=== PATIENT | female | born 1950 | race Caucasian/White ===

== ENCOUNTER 2019-04-14 22:05 | Emergency (ER) | payer MEDICARE ==
[~2019-04-14] VITALS: Ht 172.7 cm; Wt 90.7 kg
--- OUTSIDE RECORDS SUMMARY | 2019-04-14 22:08 | XMS REPORT | Clinical Summary ---
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 Active gabapentin (NEURONTIN) Take 300 mg 2 300 mg capsule by mouth 3 8 (three) times a day. Active aspirin 325 MG tablet Take 325 mg 0 by mouth daily. Active lidocaine-prilocaine APPLY ON 2 (EMLA) 2.5-2.5 % cream SURFACE OF 8 PORT 30-60 MINUTES PRIOR TO CHEMO Active calcium carbonate/vitamin Take by mouth 0 D3 (CALCIUM 600 + D,3, daily. ORAL) 04/19/2018 enoxaparin (LOVENOX) 40 Inject 0.4 mL 8.4 mL 0 mg/0.4 mL syringe (40 mg total) 8 under the skin daily for 21 days. 04/15/2018 sulfamethoxazole-trimetho Take 1 tablet 28 tablet 0 prim (BACTRIM DS) 800-160 by mouth 8 mg per tablet every 12 (twelve) hours for 14 days. 04/15/2018 metroNIDAZOLE (FLAGYL) Take 1 tablet 42 tablet 0 500 MG tablet (500 mg 8 total) by mouth 3 (three) times a day for 14 days. 04/28/2018 Discontinued (Reorder) furosemide (LASIX) 20 mg Take 1 tablet 20 tablet 0 tablet (20 mg total) 8 by mouth daily for 20 days. 07/09/2018 potassium chloride Take 1 tablet 90 tablet 0 (KLOR-CON) 10 MEQ CR (10 mEq 8 tablet total) by mouth daily for 90 days. 06/22/2018 Discontinued (Reorder) furosemide (LASIX) 20 mg Take 1 tablet 30 tablet 0 tablet (20 mg total) 8 by mouth daily for 30 days. 08/12/2018 Discontinued (Discontinued by another clinician) furosemide (LASIX) 20 mg TAKE 1 TABLET 30 tablet 0 tablet BY MOUTH 8 EVERY DAY 12/26/2018 sodium,potassium,mag Take 1 Bottle 354 mL 0 sulfates (SUPREP BOWEL (177 mL 9 PREP KIT) 17.5-3.13-1.6 total) by gram recon soln mouth once for 1 dose. 02/27/2019 Discontinued (Patient Discharge) gabapentin (NEURONTIN) 0 300 mg capsule 9 Active Problems Problem Noted Date Family history of hyperlipidemia 03/24/2019 History of colon cancer 12/26/2018 Overview: Added automatically from request for surgery [id number] Epigastric pain 12/26/2018 Overview: Added automatically from request for surgery [id number] Early satiety 11/14/2018 Overweight 09/18/2018 History of hysterectomy 09/18/2018 Ex-smoker 09/18/2018 Neoplasm of uncertain behavior of colon 09/18/2018 History of right breast cancer 04/10/2018 Overview: took PO med for 5 years and was cleared History of measles 04/10/2018 Family history of diabetes mellitus 04/10/2018 Family history of hypertension 04/10/2018 Family history of CVA 04/10/2018 BMI 27.0-27.9,adult 04/10/2018 Breast cancer screening 04/10/2018 Osteoporosis screening 04/10/2018 Edema 04/10/2018 Routine general medical examination at a health care facility 04/10/2018 Acute posthemorrhagic anemia 04/10/2018 Enlargement of thyroid 04/10/2018 Nonrheumatic aortic valve insufficiency 04/10/2018 Tricuspid valve insufficiency, non-rheumatic 04/10/2018 Immunization due 04/10/2018 Malignant neoplasm of ascending colon 04/08/2018 Cancer Staging: Clinical stage from 03/21/2018: Stage IVC (cT4b, cN0, pM1c) - Signed by Darcy Figueredo MD on 04/08/2018 Acute blood loss as cause of postoperative anemia 03/21/2018 Hypotension 03/21/2018 Thyroid goiter 03/10/2018 Hyperglycemia 03/10/2018 Preoperative clearance 03/10/2018 Other ascites 03/10/2018 Pelvic mass 03/08/2018 Resolved Problems Problem Noted Date Resolved Date Malignant neoplasm of ovary 09/18/2018 03/24/2019 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 BMI 29.0-29.9,adult 04/10/2018 08/12/2018 Acute respiratory failure with hypoxia 03/21/2018 08/12/2018 Encounters Care Team Description Date Type Specialty Jose Maria Deng MD History of colon cancer (Primary Dx); History of right breast cancer; Malignant neoplasm of ascending colon (HCC); Hyperglycemia; Family history of hyperlipidemia; Glaucoma screening 03/24/2019 Office Visit Family Medicine Ana Cristina Harmon MD Malignant neoplasm of ascending colon (HCC) (Primary Dx) 03/23/2019 Transcribe Access Orders Pankaj Weinberg MD History of colon cancer (Primary Dx); Diverticulosis of large intestine without hemorrhage; Internal hemorrhoid; Hiatal hernia 02/27/2019 Office Visit Gastroenterology Pankaj Weinberg MD COLONOSCOPY with biopsy 01/23/2019 Surgery Gastroenterology Toshia Garces MD 01/23/2019 Anesthesia Gastroenterology Event Pankaj Weinberg MD History of colon cancer; Epigastric pain 01/23/2019 Hospital Gastroenterology Encounter Ana Cristina Harmon MD Malignant neoplasm of ascending colon (HCC) 12/31/2018 Hospital Radiology Encounter Ana Cristina Harmon MD Malignant neoplasm of ascending colon (HCC) 12/31/2018 Hospital Radiology Encounter Aranza Ma NP Ashraf, Yassir Alam, MD Malignant neoplasm of ascending colon (HCC); Early satiety 12/26/2018 Office Visit Gastroenterology Shima Moise MA EGD/COLON INSTRUCTIONS 12/26/2018 Documentation Gastroenterology Shima Moise MA History of colon cancer (Primary Dx); Epigastric pain 12/26/2018 Prep for Gastroenterology Surgery Ana Cristina Harmon MD Malignant neoplasm of ascending colon (HCC) (Primary Dx) 12/18/2018 Transcribe Access Orders Aranza Ma NP Malignant neoplasm of ascending colon (HCC) (Primary Dx); Early satiety 11/14/2018 Office Visit Family Medicine Shima Ram 11/05/2018 Documentation Obstetrics and Gynecology IV infiltrate, initial encounter (Primary Dx); Swelling at injection site 10/09/2018 Office Visit Family Ana Cristina Marley MD Malignant neoplasm of ascending colon (HCC) 10/09/2018 Hospital Radiology Encounter Ana Cristina Harmon MD Malignant neoplasm of ascending colon (HCC) 10/09/2018 Hospital Radiology Encounter Ana Cristina Harmon MD Malignant neoplasm of ascending colon (HCC) (Primary Dx) 10/02/2018 Transcribe Access Orders Aranza Ma NP Malignant neoplasm of ascending colon (HCC) (Primary Dx); Nonrheumatic aortic valve insufficiency; Tricuspid valve insufficiency, non-rheumatic; Routine general medical examination at a health care facility; Hyperglycemia; History of right breast cancer; History of measles; Family history of hypertension; Family history of CVA; Family history of diabetes mellitus; BMI 27.0-27.9,adult; Overweight; History of hysterectomy; Malignant neoplasm of ovary, unspecified laterality (HCC); Secondary malignant neoplasm of right ovary (HCC); Neoplasm of uncertain behavior of colon 09/18/2018 Office Visit Family Jose Maria Ferreira MD Screening mammogram, encounter for 08/28/2018 Hospital Radiology Encounter Jose Maria Deng MD Metastatic colon cancer in female (HCC) (Primary Dx); Nonrheumatic aortic valve insufficiency; Malignant neoplasm of ascending colon (HCC); Hyperglycemia; BMI 27.0-27.9,adult; History of right breast cancer; Screening mammogram, encounter for 08/12/2018 Office Visit Family Medicine Ana Cristina Harmon MD Malignant neoplasm of ascending colon (HCC) 07/17/2018 Hospital Radiology Encounter Ana Cristina Harmon MD Malignant neoplasm of ascending colon (HCC) 07/17/2018 Hospital Radiology Encounter Ana Cristina Harmon MD Malignant neoplasm of ascending colon (HCC) (Primary Dx) 07/08/2018 Transcribe Access Orders Jose Maria Deng MD 06/22/2018 Refill Family Medicine Darcy Figueredo MD Malignant neoplasm of ascending colon (HCC) (Primary Dx) 05/27/2018 Office Visit Gynecologic Oncology Darcy Figueredo MD 05/20/2018 Telephone Obstetrics and Gynecology Anastasia Hernandez MA 04/28/2018 Orders Only Family Medicine Darcy Figueredo MD 04/27/2018 Refill Gynecologic Oncology Anastasia Hernandez MA 04/25/2018 Telephone Family Medicine Ana Cristina Harmon MD Malignant neoplasm of ascending colon; Secondary malignant neoplasm of retroperitoneum and peritoneum; Secondary malignant neoplasm of left ovary 04/23/2018 Hospital Radiology Encounter Weston Gonzalez 04/22/2018 Telephone Radiology Ana Cristina Harmon MD Malignant neoplasm of ascending colon; Secondary malignant neoplasm of retroperitoneum and peritoneum; Secondary malignant neoplasm of left ovary 04/21/2018 Hospital Radiology Encounter Karin Blount RN 04/18/2018 Telephone Gynecologic Oncology Ana Cristina Harmon MD Malignant neoplasm of ascending colon (Primary Dx); Secondary malignant neoplasm of retroperitoneum and peritoneum; Secondary malignant neoplasm of left ovary 04/16/2018 Transcribe Access Orders Chanda Cash MA 04/15/2018 Telephone Family Medicine after 04/13/2018 Immunizations Name Administration Dates Next Due FLUZONE HIGH-DOSE PF 04/10/2018 Pneumococcal Conjugate 03/24/2019 13-Valent Pneumococcal 04/10/2018 Polysaccharide Family History Medical History Relation Name Comments Arthritis Father Heart disease Father Hypertension Father Heart disease Mother Thyroid disease Mother Relation Name Status Comments Father Alive Mother Alive Social History Date Tobacco Use Types Packs/Day Years Used Quit: 04/23/1988 Former Smoker Cigarettes 0.5 1 Smokeless Tobacco: Never Used Comments: stopped 30 yrs ago Drinks/Week oz/Week Comments Alcohol Use social Yes Sex Assigned at Date Recorded Not on file Industry Job Start Date Occupation Not on file Not on file Not on file Travel End Travel History Travel Start No recent travel history available. Last Filed Vital Signs Reading Time Taken Comments Vital Sign 132/62 03/24/2019 1:45 PM CDT Blood Pressure 67 03/24/2019 1:45 PM CDT Pulse 36.9 C (98.4 F) 03/24/2019 1:45 PM CDT Temperature 14 01/23/2019 10:39 AM CDT Respiratory Rate 98% 03/24/2019 1:45 PM CDT Oxygen Saturation - - Inhaled Oxygen Concentration 91.8 kg (202 lb 6.4 oz) 03/24/2019 1:45 PM CDT Weight 172.7 cm (5' 8") 03/24/2019 1:45 PM CDT Height 30.77 03/24/2019 1:45 PM CDT Body Mass Index Plan of Treatment Care Team Description Date Type Specialty Darcy Figueredo MD [address] [place] [address] 06/02/2019 Office Visit [place] [id number] [facility] [address] [place] [address] 09/24/2019 Office Visit Family Medicine Health Maintenance Due Date Last Done Comments SHINGLES VACCINES (#1) 10/07/1999 INFLUENZA VACCINE 03/05/2019 04/10/2018 BREAST CANCER SCREENING 08/28/2020 08/28/2018 COLONOSCOPY SCREENING 03/21/2028 03/21/2018 65+ PNEUMOCOCCAL VACCINE Completed 03/24/2019, 04/10/2018 Implants Device Identifier Shelf Expiration Date Model / Serial / Lot Implanted Type Area Manufactur er 01/02/2021 [id number] / / [id number] Port Injctbl Smart Port Ct W/ Dtchd Implantabl N/A: N/A ANGIODYNAM Silicon Cath 7.5fr - [id number] [employer]fusion [employer] Implanted: 04/23/2018 at [facility] or [facility] (Quantity not on file) Accessorie s Procedures Comments Procedure Name Priority Date/Time Associated Diagnosis CT CHEST W CONTRAST Routine 04/10/2019 Malignant neoplasm of 7:41 AM CDT ascending colon (HCC) CT ABDOMEN PELVIS W Routine 04/10/2019 Malignant neoplasm of CONTRAST 7:40 AM CDT ascending colon (HCC) POC CREATININE Routine 04/10/2019 7:22 AM CDT ESTIMATED GFR Routine 04/10/2019 7:22 AM CDT HEMOGLOBIN A1C Routine 03/24/2019 Hyperglycemia 2:25 PM CDT SURGICAL PATHOLOGY Routine 01/23/2019 REQUEST 12:48 PM CDT ESOPHAGOGASTRODUODENOSCOP 01/23/2019 History of colon cancer Y (EGD) 9:43 AM CDT Epigastric pain COLONOSCOPY 01/23/2019 History of colon cancer 9:43 AM CDT Epigastric pain CT CHEST W CONTRAST Routine 12/31/2018 Malignant neoplasm of 1:45 PM CDT ascending colon (HCC) CT ABDOMEN PELVIS W Routine 12/31/2018 Malignant neoplasm of CONTRAST 1:45 PM CDT ascending colon (HCC) CT CHEST W CONTRAST Routine 10/09/2018 Malignant neoplasm of 12:50 PM ASSOCIATE PROJECT MANAGER ascending colon (HCC) CT ABDOMEN PELVIS W Routine 10/09/2018 Malignant neoplasm of CONTRAST 12:48 PM ASSOCIATE PROJECT MANAGER ascending colon (HCC) MAMMO BREAST SCREEN Routine 08/28/2018 Screening mammogram, TOMOSYNTHESIS BILATERAL 1:56 PM ASSOCIATE PROJECT MANAGER encounter for URINALYSIS, AUTOMATED Routine 08/12/2018 Metastatic colon cancer WITH MICROSCOPY 3:33 PM ASSOCIATE PROJECT MANAGER in female (HCC) Nonrheumatic aortic valve insufficiency Malignant neoplasm of ascending colon (HCC) Hyperglycemia History of right breast cancer CBC WITH PLATELET AND Routine 08/12/2018 Nonrheumatic aortic valve DIFFERENTIAL 3:33 PM ASSOCIATE PROJECT MANAGER insufficiency Malignant neoplasm of ascending colon (HCC) History of right breast cancer HEMOGLOBIN A1C Routine 08/12/2018 Hyperglycemia 3:33 PM ASSOCIATE PROJECT MANAGER BASIC METABOLIC PANEL Routine 08/12/2018 Metastatic colon cancer 3:33 PM ASSOCIATE PROJECT MANAGER in female (HCC) Hyperglycemia CT CHEST W CONTRAST Routine 07/17/2018 Malignant neoplasm of 9:43 AM ASSOCIATE PROJECT MANAGER ascending colon (HCC) CT ABDOMEN PELVIS W Routine 07/17/2018 Malignant neoplasm of CONTRAST 9:42 AM ASSOCIATE PROJECT MANAGER ascending colon (HCC) ESTIMATED GFR Routine 07/17/2018 9:16 AM ASSOCIATE PROJECT MANAGER POC CREATININE Routine 07/17/2018 9:16 AM ASSOCIATE PROJECT MANAGER US GUIDED VASCULAR ACCESS Routine 04/23/2018 Malignant neoplasm of 11:08 AM CDT ascending colon 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 IR PORT PLACEMENT Routine 04/23/2018 Malignant neoplasm of 11:08 AM CDT ascending colon 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 ESTIMATED GFR Routine 04/23/2018 9:08 AM CDT PARTIAL THROMBOPLASTIN Routine 04/23/2018 TIME (PTT) 9:08 AM CDT PROTHROMBIN TIME WITH INR Routine 04/23/2018 9:08 AM CDT BASIC METABOLIC PANEL Routine 04/23/2018 9:08 AM CDT HC COMPLETE BLD COUNT Routine 04/23/2018 W/AUTO DIFF 9:[address] SKULL BASE TO MID Routine 04/21/2018 Malignant neoplasm of THIGH 12:30 PM CDT ascending colon 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 Specimen Narrative Performed At CT CHEST W CONTRAST [facility] CLINICAL INDICATION:C18.2 Malignant neoplasm of ascending colon, ascending colon ca TECHNIQUE:Multidetector CT imaging of the chest was performed following the intravenous administration of iodinated contrast with multiplanar reconstructions. CT imaging was performed with iterative reconstruction technique and/or automated exposure control to reduce radiation dose. COMPARISON:12/31/2018. FINDINGS: LUNGS:Clear. PLEURA:No pleural effusion or pneumothorax. LYMPH NODES:No pathological adenopathy in the scott, axilla or mediastinum. There are calcified and noncalcified mediastinal and hilar lymph nodes, likely sequela of prior granulomatous disease. CARDIOVASCULAR:Heart is normal in size without effusion. There is calcified atherosclerotic disease of the coronary arteries. The thoracic aorta and main pulmonary artery are normal in caliber. There is a right-sided Port-A-Cath with its tip located in the right atrium. MEDIASTINUM:No mass or hematoma. Trachea and central airways are patent. BONES: No acute osseous abnormality. UPPER ABDOMEN:Please refer to the concurrent CT of the abdomen and pelvis for description of the intra-abdominal findings. IMPRESSION: No evidence of metastatic disease. [id number] Procedure Note Hm Interface, Radiology Results Incoming - 04/10/2019 7:[address] CHEST W CONTRAST CLINICAL INDICATION: C18.2 Malignant neoplasm of ascending colon, ascending colon ca TECHNIQUE: Multidetector CT imaging of the chest was performed following the intravenous administration of iodinated contrast with multiplanar reconstructions. CT imaging was performed with iterative reconstruction technique and/or automated exposure control to reduce radiation dose. COMPARISON: 12/31/2018. FINDINGS: LUNGS: Clear. PLEURA: No pleural effusion or pneumothorax. LYMPH NODES: No pathological adenopathy in the scott, axilla or mediastinum. There are calcified and noncalcified mediastinal and hilar lymph nodes, likely sequela of prior granulomatous disease. CARDIOVASCULAR: Heart is normal in size without effusion. There is calcified atherosclerotic disease of the coronary arteries. The thoracic aorta and main pulmonary artery are normal in caliber. There is a right-sided Port-A-Cath with its tip located in the right atrium. MEDIASTINUM: No mass or hematoma. Trachea and central airways are patent. BONES: No acute osseous abnormality. UPPER ABDOMEN: Please refer to the concurrent CT of the abdomen and pelvis for description of the intra-abdominal findings. IMPRESSION: No evidence of metastatic disease. [id number] Performing Organization Address City/State/Zipcode Phone Number [facility] [address] [place] [address] * CT Abdomen Pelvis W Contrast (04/10/2019 7:40 AM CDT) Only the most recent of 4 results within the time period is included. Specimen Narrative Performed At EXAMINATION:[facility]C18.2 Malignant neoplasm of ascending colon, ascending colon ca TECHNIQUE: Multiple axial images of the abdomen and pelvis were obtained following intravenous administration of iodinated contrast. Sagittal and coronal computerized reformatted images were also obtained. CT imaging was performed with iterative reconstruction techniques and/or automated exposure control to reduce radiation dose. COMPARISON:12/31/2018 FINDINGS: Status post right hemicolectomy. No suspicious bowel thickening or dilatation. Mild diverticulosis in the sigmoid colon. No lymphadenopathy. No free fluid or fluid collection. No mass in the liver. Gallbladder is absent. Stable mild biliary dilatation is of doubtful significance. There is some fatty changes in the pancreas. Spleen is normal in size with calcified granulomas. No renal mass or hydronephrosis. Stable bilateral pericentimeter adrenal nodules are indeterminate but most likely adenomas. Uterus is absent. No suspicious bony lesion. IMPRESSION: No evidence of recurrent/metastatic disease. Stable chronic findings as noted above [facility]-[id number] Procedure Note Interface, Radiology Results Incoming - 04/10/2019 8:45 AM CDT EXAMINATION: CT ABDOMEN PELVIS W CONTRAST CLINICAL HISTORY: C18.2 Malignant neoplasm of ascending colon, ascending colon ca TECHNIQUE: Multiple axial images of the abdomen and pelvis were obtained following intravenous administration of iodinated contrast. Sagittal and coronal computerized reformatted images were also obtained. CT imaging was performed with iterative reconstruction techniques and/or automated exposure control to reduce radiation dose. COMPARISON: 12/31/2018 FINDINGS: Status post right hemicolectomy. No suspicious bowel thickening or dilatation. Mild diverticulosis in the sigmoid colon. No lymphadenopathy. No free fluid or fluid collection. No mass in the liver. Gallbladder is absent. Stable mild biliary dilatation is of doubtful significance. There is some fatty changes in the pancreas. Spleen is normal in size with calcified granulomas. No renal mass or hydronephrosis. Stable bilateral pericentimeter adrenal nodules are indeterminate but most likely adenomas. Uterus is absent. No suspicious bony lesion. IMPRESSION: No evidence of recurrent/metastatic disease. Stable chronic findings as noted above [id number] Performing Organization Address City/State/Zipcode Phone Number [facility] [address] [place] [address] * Estimated GFR (04/10/2019 7:22 AM CDT) Only the most recent of 3 results within the time period is included. Estimated GFR 65 mL/min/1.73 m2 [place] Comment: MORMONISM CatergoryUnitsCata[facility] G1 >=90 Normal or high G2 60-89Mildly decreased [id number] Mildly to moderately decreased J1d39-41 Moderately to severely decreased G4 15-29Severely decreased G5 <15Kidney failure The eGFR was calculated using the Chronic Kidney Disease Epidemiology Collaboration (CKD-EPI) equation. Interpretation is based on recommendations of the National Kidney Foundation-Kidney Disease Outcomes Quality Initiative (NKF-KDOQI) published in 2014. Specimen Blood Performing Organization Address City/State/[place] [address] [facility] [address] * POC creatinine (04/10/2019 7:22 AM CDT) Only the most recent of 2 results within the time period is included. [facility] POC creatinine 0.9 0.5 - 0.9 mg/dl [place] Comment: MORMONISM Meter ID: [id number] [place] Carpenter: [facility] Specimen Blood Performing Organization Address City/[facility] Cent[facility] Phone Number [address] * Hemoglobin A1c (03/24/2019 2:25 PM CDT) Only the most recent of 2 results within the time period is included. [facility] Hemoglobin A1C 5.4 <5.7 % of total Hgb [facility] Comment: DIAGNOSTICS For the purpose of screening [place] for the presence of diabetes: <5.7% Consistent with the absence of diabetes 5.7-6.4%Consistent with increased risk for diabetes (predi abetes) > or=6.5%Consistent with diabetes This assay result is consistent with a decreased risk of diabetes. Currently, no consensus exists regarding use of hemoglobin A1c for diagnosis of diabetes in children. According to [place] [employer] (ADA) guidelines, hemoglobin A1c <7.0% represents optimal control in non- diabetic patients. Different metrics may apply to specific patient populations. Standards of Medical Care in Diabetes(ADA). Specimen Blood Resulting Agency Comment Performing Organization Information: Site ID: [id number] Name: [facility] Address: [address] [place] [phone] Director: Nate Wells Performing Organization Address City/State/Zipcode Phone Number [facility] [place] [address] [place], [place] [phone] * Surgical pathology request (01/23/2019 12:48 PM CDT) [facility] DEPARTMENT OF PATHOLOGY AND GENOMIC MEDICINE Surgical See link below for PDF Lab [facility] DEPARTMENT pathology Report OF PATHOLOGY report AND GENOMIC MEDICINE Result status This is Final Report for [facility] DEPARTMENT [id number] OF PATHOLOGY AND GENOMIC MEDICINE Specimen Performing Organization Address City/State/Zipcode Phone Number [facility] DEPARTMENT OF [address] [place] [address] PATHOLOGY AND GENOMIC MEDICINE * Mammo Breast Screen Tomosynthesis Bilateral (08/28/2018 1:56 PM ASSOCIATE PROJECT MANAGER) Specimen Narrative Performed At PROCEDURE: MAMMO BREAST SCREEN TOMOSYNTHESIS BILATERAL [employer] Computer aided detection was utilized for the interpretation of the digital bilateral screening mammography with tomosynthesis. COMPARISON: There is no prior studies available for comparison. DENSITY: The breast parenchyma is heterogeneously dense, decreasing the sensitivity of the study. Surgical changes are noted in the right breast as well as a [id number] over the right axilla. There are benign scattered calcifications in both breasts. There is no evidence of suspicious masses, architectural distortions or grouped calcifications. IMPRESSION:No mammographic evidence of malignancy. RECOMMENDATION: Comparison with physical exam and annual screening mammography. BI-RADS 2: Benign. This facility is accredited by the [place] [employer] for Mammography. A negative x-ray report should not delay biopsy if a dominant or clinically suspicious mass is present.Not all cancers are identified by x-ray. [id number] Performing Organization Address City/State/Zipcode Phone Number [facility] [address] [place] [address] * Urinalysis, automated with microscopy (08/12/2018 3:33 PM ASSOCIATE PROJECT MANAGER) Color, UA YELLOW YELLOW [facility] [place] Appearance CLEAR CLEAR [facility] [place] Specific 1.021 1.001 - 1.035 [facility] gravity, urine DIAGNOSTICS [place] pH, urine < OR=5.0 5.0 - 8.0 [facility] [place] Glucose, urine NEGATIVE NEGATIVE [facility] [place] Bilirubin, UA NEGATIVE NEGATIVE [facility] [place] Ketones, UA NEGATIVE NEGATIVE [facility] [place] Occult blood, NEGATIVE NEGATIVE [facility] [place] Protein, UA NEGATIVE NEGATIVE [facility] [place] Nitrite, UA NEGATIVE NEGATIVE [facility] [place] Leukocyte TRACE (A) NEGATIVE [facility] esterase, UA [facility] [place] WBC, UA 0-5 < OR=5 /HPF [facility] [place] RBC, UA NONE SEEN < OR=2 /HPF [facility] [place] Squamous NONE SEEN < OR=5 /HPF [facility] epithelial [facility]AGNOSTICS cells, UA [place] Bacteria, UA NONE SEEN NONE SEEN /HPF [facility] [place] Hyaline casts, NONE SEEN NONE SEEN /LPF [facility] [place] Specimen Urine Resulting Agency Comment Performing Organization Information: Site ID: [id number] Address: [address] [place] [address] Director: Siri Germain Performing Organization Address City/State/Zipcode Phone Number [facility] [place] [address] [place] [address] * CBC with platelet and differential (08/12/2018 3:33 PM ASSOCIATE PROJECT MANAGER) Only the most recent of 2 results within the time period is included. WBC 5.9 3.8 - 10.8 [facility] Thousand/uL [facility] [place] RBC 4.44 3.80 - 5.10 [facility] Million/uL [facility] [place] HGB 12.0 11.7 - 15.5 g/dL [facility] [place] HCT 35.6 35.0 - 45.0 % [facility] [place] MCV 80.2 80.0 - 100.0 fL [facility] [place] MCH 27.0 27.0 - 33.0 pg [facility] [place] MCHC 33.7 32.0 - 36.0 g/dL [facility] [place] RDW 16.7 (H) 11.0 - 15.0 % [facility] [place] Platelet count 171 140 - 400 [facility] Thousand/uL [facility] [place] MPV 8.8 7.5 - 12.5 fL [facility] [place] Neutrophils, 3,257 1,500 - 7,800 [facility] absolute cells/uL [facility] [place] Lymphocytes, 1,634 850 - 3,900 cells/uL [facility] [place] Monocytes, 767 200 - 950 cells/uL [facility] [place] Eosinophils, 201 15 - 500 cells/uL [facility] [place] Basophils, 41 0 - 200 cells/uL [facility] absolute [facility] [place] Neutrophils 55.2 % [facility] [place] Lymphocytes 27.7 % [facility] [place] Monocytes 13.0 % [facility] [place] Eosinophils 3.4 % [facility] [place] Basophils + RC 0.7 % [facility] [place] Specimen Blood Resulting Agency Comment Performing Organization Information: Site ID: [id number] Name: [facility] Address: [address] [place] [phone] Director: Siri Germain Performing Organization Address [facility] Phone Number [facility] [address] [phone] * Basic metabolic panel (08/12/2018 3:33 PM ASSOCIATE PROJECT MANAGER) Only the most recent of 2 results within the time period is included. Glucose 97 65 - 99 mg/dL [facility] Comment: DIAGNOSTICS Fasting [place] reference interval BUN, whole 23 7 - 25 mg/dL [facility] blood [facility] [place] Creatinine 0.71 0.50 - 0.99 mg/dL [facility] Comment: DIAGNOSTICS For patients >49 years of age, [place] the reference limit for Creatinine is approximately 13% higher for people identified as -Filipino. EGFR Non-Afr. 88 > OR=60 [facility] Filipino mL/min/1.73m2 [facility] EGFR 101 > OR=60 [facility] Filip[place] mL/min/1.73m2 [facility] [place] BUN/creatinine NOT APPLICABLE 6 - 22 (calc) [facility] ratio [facility] [place] Sodium 142 135 - 146 mmol/L [facility] [place] Potassium 4.4 3.5 - 5.3 mmol/L [facility] [place] Chloride 106 98 - 110 mmol/L [facility] [place] CO2 26 20 - 32 mmol/L [facility] [place] Calcium 9.1 8.6 - 10.4 mg/dL [facility] [place] Specimen Blood Resulting Agency Comment Performing Organization Information: Site ID: [id number] [facility]: [facility] Address: [address] [place] [phone] Director: Siri Germain Performing Organization Address City/[facility] Phone Number [facility] [address] [address] * IR Port Placement (04/23/2018 11:08 AM CDT) Specimen Narrative Performed At Performing Radiologist: Neville Peña MD [facility] Assistants: None Anesthesia Type: Under physician supervision, Versed and fentanyl administered intravenously for moderate sedation. Pulse oximetry, heart rate, and blood pressure were continuously monitored by the nurse. The patient spent 25 minutes of face to face sedation time with the patient. 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 Procedure Subcutaneous right chest port placement. Technique Written informed consent was obtained prior to the procedure. All elements of maximal sterile barrier technique were followed. Using ultrasound guidance, the right internal jugular vein was punctured with a 21-gauge needle allowing placement of a 0.018 inch guidewire. The needle was removed and a micropuncture sheath was then placed over the guidewire. Under ultrasound guidance, documentation of vessel patency, needle access with permanent recording, and reporting are performed followed by placement of a sheath in the internal jugular vein. A subcutaneous pocket was then created at the right infraclavicular fossa using sharp and blunt dissection. A tunnel was made between the pocket and the venotomy site, through which the 8-Maltese port catheter was placed. The venotomy was sequentially dilated to accept an 8-Maltese peel-away sheath, through which the leading edge of the catheter was advanced under fluoroscopic guidance. The trailing end of the catheter was trimmed to the appropriate length and attached to an [employer] Smart Port CT. Following irrigation of the pocket with dilute antibiotic solution, the port was placed within the pocket and sutured to the underlying fascia with 3-0 Vicryl suture. The port incision was closed using a deep layer of interrupted 3-0 Vicryl suture, 4-0 Monocryl running subcuticular suture, Dermabond and Steri-Strips. The small venotomy incision was closed using 4-0 Monocryl suture and Dermabond. The port was accessed and found to flush and aspirate freely. A post placement fluoroscopic imaging of the chest was then obtained. There were no complications. Total Fluoroscopic Time 1 second. Fluoroscopy Ka,r=2 mGy Complications None. Specimens Removed None. Estimated Blood Loss Less than 2 mL. Blood/Blood Products Administered None. Grafts/Implants As described in the above report. Impression: Successful ultrasound and fluoroscopic-guided placement of a subcutaneous right chest port via the right internal jugular vein. The catheter tip lies at the right atrium/superior vena cava junction and is ready for use. [id number] Procedure Note Hm Interface, Radiology Results Incoming - 04/23/2018 12:16 PM CDT Performing Radiologist: Neville Peña MD Assistants: None Anesthesia Type: Under physician supervision, Versed and fentanyl administered intravenously for moderate sedation. Pulse oximetry, heart rate, and blood pressure were continuously monitored by the nurse. The patient spent 25 minutes of face to face sedation time with the patient. 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 Procedure Subcutaneous right chest port placement. Technique Written informed consent was obtained prior to the procedure. All elements of maximal sterile barrier technique were followed. Using ultrasound guidance, the right internal jugular vein was punctured with a 21-gauge needle allowing placement of a 0.018 inch guidewire. The needle was removed and a micropuncture sheath was then placed over the guidewire. Under ultrasound guidance, documentation of vessel patency, needle access with permanent recording, and reporting are performed followed by placement of a sheath in the internal jugular vein. A subcutaneous pocket was then created at the right infraclavicular fossa using sharp and blunt dissection. A tunnel was made between the pocket and the venotomy site, through which the 8-Maltese port catheter was placed. The venotomy was sequentially dilated to accept an 8-Maltese peel-away sheath, through which the leading edge of the catheter was advanced under fluoroscopic guidance. The trailing end of the catheter was trimmed to the appropriate length and attached to an [employer] Smart Port CT. Following irrigation of the pocket with dilute antibiotic solution, the port was placed within the pocket and sutured to the underlying fascia with 3-0 Vicryl suture. The port incision was closed using a deep layer of interrupted 3-0 Vicryl suture, 4-0 Monocryl running subcuticular suture, Dermabond and Steri-Strips. The small venotomy incision was closed using 4-0 Monocryl suture and Dermabond. The port was accessed and found to flush and aspirate freely. A post placement fluoroscopic imaging of the chest was then obtained. There were no complications. Total Fluoroscopic Time 1 second. Fluoroscopy Ka,r=2 mGy Complications None. Specimens Removed None. Estimated Blood Loss Less than 2 mL. Blood/Blood Products Administered None. Grafts/Implants As described in the above report. Impression: Successful ultrasound and fluoroscopic-guided placement of a subcutaneous right chest port via the right internal jugular vein. The catheter tip lies at the right atrium/superior vena cava junction and is ready for use. [id number] Performing Organization Address City/State/Zipcode Phone Number [facility] [address] [place] [address] * US Guided Vascular Access (04/23/2018 11:08 AM CDT) Specimen Narrative Performed At Performing Radiologist: Neville Peña MD [facility] Assistants: None Anesthesia Type: Under physician supervision, Versed and fentanyl administered intravenously for moderate sedation. Pulse oximetry, heart rate, and blood pressure were continuously monitored by the nurse. The patient spent 25 minutes of face to face sedation time with the patient. 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 Procedure Subcutaneous right chest port placement. Technique Written informed consent was obtained prior to the procedure. All elements of maximal sterile barrier technique were followed. Using ultrasound guidance, the right internal jugular vein was punctured with a 21-gauge needle allowing placement of a 0.018 inch guidewire. The needle was removed and a micropuncture sheath was then placed over the guidewire. Under ultrasound guidance, documentation of vessel patency, needle access with permanent recording, and reporting are performed followed by placement of a sheath in the internal jugular vein. A subcutaneous pocket was then created at the right infraclavicular fossa using sharp and blunt dissection. A tunnel was made between the pocket and the venotomy site, through which the 8-Maltese port catheter was placed. The venotomy was sequentially dilated to accept an 8-Maltese peel-away sheath, through which the leading edge of the catheter was advanced under fluoroscopic guidance. The trailing end of the catheter was trimmed to the appropriate length and attached to an [employer] Smart Port CT. Following irrigation of the pocket with dilute antibiotic solution, the port was placed within the pocket and sutured to the underlying fascia with 3-0 Vicryl suture. The port incision was closed using a deep layer of interrupted 3-0 Vicryl suture, 4-0 Monocryl running subcuticular suture, Dermabond and Steri-Strips. The small venotomy incision was closed using 4-0 Monocryl suture and Dermabond. The port was accessed and found to flush and aspirate freely. A post placement fluoroscopic imaging of the chest was then obtained. There were no complications. Total Fluoroscopic Time 1 second. Fluoroscopy Ka,r=2 mGy Complications None. Specimens Removed None. Estimated Blood Loss Less than 2 mL. Blood/Blood Products Administered None. Grafts/Implants As described in the above report. Impression: Successful ultrasound and fluoroscopic-guided placement of a subcutaneous right chest port via the right internal jugular vein. The catheter tip lies at the right atrium/superior vena cava junction and is ready for use. [id number] Procedure Note Hm Interface, Radiology Results Incoming - 04/23/2018 12:16 PM CDT Performing Radiologist: Neville Peña MD Assistants: None Anesthesia Type: Under physician supervision, Versed and fentanyl administered intravenously for moderate sedation. Pulse oximetry, heart rate, and blood pressure were continuously monitored by the nurse. The patient spent 25 minutes of face to face sedation time with the patient. 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 Procedure Subcutaneous right chest port placement. Technique Written informed consent was obtained prior to the procedure. All elements of maximal sterile barrier technique were followed. Using ultrasound guidance, the right internal jugular vein was punctured with a 21-gauge needle allowing placement of a 0.018 inch guidewire. The needle was removed and a micropuncture sheath was then placed over the guidewire. Under ultrasound guidance, documentation of vessel patency, needle access with permanent recording, and reporting are performed followed by placement of a sheath in the internal jugular vein. A subcutaneous pocket was then created at the right infraclavicular fossa using sharp and blunt dissection. A tunnel was made between the pocket and the venotomy site, through which the 8-Maltese port catheter was placed. The venotomy was sequentially dilated to accept an 8-Maltese peel-away sheath, through which the leading edge of the catheter was advanced under fluoroscopic guidance. The trailing end of the catheter was trimmed to the appropriate length and attached to an [employer] Smart Port CT. Following irrigation of the pocket with dilute antibiotic solution, the port was placed within the pocket and sutured to the underlying fascia with 3-0 Vicryl suture. The port incision was closed using a deep layer of interrupted 3-0 Vicryl suture, 4-0 Monocryl running subcuticular suture, Dermabond and Steri-Strips. The small venotomy incision was closed using 4-0 Monocryl suture and Dermabond. The port was accessed and found to flush and aspirate freely. A post placement fluoroscopic imaging of the chest was then obtained. There were no complications. Total Fluoroscopic Time 1 second. Fluoroscopy Ka,r=2 mGy Complications None. Specimens Removed None. Estimated Blood Loss Less than 2 mL. Blood/Blood Products Administered None. Grafts/Implants As described in the above report. Impression: Successful ultrasound and fluoroscopic-guided placement of a subcutaneous right chest port via the right internal jugular vein. The catheter tip lies at the right atrium/superior vena cava junction and is ready for use. [id number] Performing Organization Address City/[facility]/Zipcode Phone Number [facility] [address] [place] [address] * Partial thromboplastin time, activated (04/23/2018 9:08 AM CDT) PTT 31.5 23.0 - 36.0 sec [facility] DEPARTMENT Comment: OF PATHOLOGY PTT therapeutic range for AND GENOMIC unfractionated heparin is MEDICINE 61.0-112.0 seconds which corresponds to Anti-Xa 0.3-0.7 U/ml. Note:Change in Panic Value The PTT Panic Value is changing from 110 sec. to 100 sec. due to new instrumentation and reagents. Correlation studies have been performed to validate this result. Specimen Blood Performing Organization Address City/State/Zipcode Phone Number [facility] DEPARTMENT OF [address] [place] [address] [facility] MEDICINE * Prothrombin time with INR (04/23/2018 9:08 AM CDT) Prothrombin 13.7 12.0 - 15.0 sec [facility] DEPARTMENT time OF PATHOLOGY AND [employer] MEDIC[facility] INR 1.04 0.92 - 1.12 [facility] DEPARTMENT Comment: OF PATHOLOGY For patients on anticoagulant AND GENOMIC therapy, reference ranges MEDICINE below: Indication: INR Value Treatment of Venous Thrombosis, 2.0-3.0 pulmonary emboli, or prophylaxis of a venous thrombosis, or systemic emboli. High dose, high risk patients 3.0-4.5 with mechanical valves. NOTE:INR values over 3.0 are sometimes associated with gastrointestinal hemorrhage, especially values over 4.0. 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 CT chest/abdomen/pelvis 03/19/2018 TECHNIQUE: The patient received 10-15 mCi 18-FDG intravenously. 1 hour later, PET/CT scanning from the orbits to the mid thighs was performed. CT scanning was nondiagnostic and used for attenuation correction purposes and to aid in localization of any abnormal findings on the PET images. Automated dose exposure control was utilized. Blood aihvzzq=[id number]. FINDINGS: Head and Neck There is no suspicious lymph node uptake and is no evidence of malignancy in the visualized brain. Chest Pulmonary, mediastinal, hilar, and axillary uptake are normal. Moderate right pleural effusion, mildly improved, without pleural uptake. Abdomen Uptake in the liver, spleen, adrenal glands, pancreas, kidneys, and stomach is normal. A small right adrenal nodule has fairly low density (mean Hounsfield units=15) and no uptake, very likely a benign adenoma. A similar finding on the left side demonstrates very mild uptake (SUV=1.9), also likely a benign adenoma. There is no suspicious retroperitoneal or mesenteric lymph node uptake. Moderate ascites has increased on the left side and in the upper pelvis, stable on the right side. Extensive postsurgical uptake is present in the anterior lower abdomen/upper pelvis. Pelvis There is no suspicious pelvic or inguinal lymph node uptake. Postsurgical changes with mild uptake near the left adnexa, with the uptake likely benign/inflammatory (SUV=2.8). Osseous Structures There is no suspicious osseous uptake. IMPRESSION: 1.No definite evidence of residual/metastatic malignancy. 2.Postsurgical changes near the left adnexa with mild uptake, likely inflammatory. 3.Moderate right pleural effusion and bilateral ascites. 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 CT chest/abdomen/pelvis 03/19/2018 TECHNIQUE: The patient received 10-15 mCi 18-FDG intravenously. 1 hour later, PET/CT scanning from the orbits to the mid thighs was performed. CT scanning was nondiagnostic and used for attenuation correction purposes and to aid in localization of any abnormal findings on the PET images. Automated dose exposure control was utilized. Blood eocxpos=805. FINDINGS: Head and Neck There is no suspicious lymph node uptake and is no evidence of malignancy in the visualized brain. Chest Pulmonary, mediastinal, hilar, and axillary uptake are normal. Moderate right pleural effusion, mildly improved, without pleural uptake. Abdomen Uptake in the liver, spleen, adrenal glands, pancreas, kidneys, and stomach is normal. A small right adrenal nodule has fairly low density (mean Hounsfield units=15) and no uptake, very likely a benign adenoma. A similar finding on the left side demonstrates very mild uptake (SUV=1.9), also likely a benign adenoma. There is no suspicious retroperitoneal or mesenteric lymph node uptake. Moderate ascites has increased on the left side and in the upper pelvis, stable on the right side. Extensive postsurgical uptake is present in the anterior lower abdomen/upper pelvis. Pelvis There is no suspicious pelvic or inguinal lymph node uptake. Postsurgical changes with mild uptake near the left adnexa, with the uptake likely benign/inflammatory (SUV=2.8). Osseous Structures There is no suspicious osseous uptake. IMPRESSION: 1. No definite evidence of residual/metastatic malignancy. 2. Postsurgical changes near the left adnexa with mild uptake, likely inflammatory. 3. Moderate right pleural effusion and bilateral ascites. [facility]-[id number] Performing Organization Address City/State/Zipcode Phone Number [facility] [address] [place] [address] * POC glucose (04/21/2018 9:54 AM CDT) POC glucose 105 (H) 65 - 100 mg/dL [facility] DEPARTMENT Comment: OF PATHOLOGY Meter ID: [id number] AND GENOMIC [employer] Carpenter: [place] WIN Specimen Performing Organization Address City/State/Zipcode Phone Number [facility] DEPARTMENT OF [address] [place] [address] PATHOLOGY AND GENOMIC MEDICINE after 04/13/2018 Additional Health Concerns Resolved Time Infection Noted Time ESBL (C ) 03/31/2018 4:25 PM CDT Insurance Type Payer Benefit Subscriber ID Effective Phone Address Plan / Dates Group HMO [employer] CIGNA xxxxxxxx [id number] [employer]ALTH[employer]I resent [place] HMO MCR ADV Advance Directives For more information, please contact: [phone] Patient Ceramics Teacher Explanation Type Date Recorded Advance Directives, Living Will and Medical Power of Monologist Medical Power of Monologist Advance Directives, 03/10/2018 10:04 AM Living Will and Medical Power of Monologist
[2019-04-14 23:00] VITALS: BP 184/83
== END 2019-04-14 22:59 | disposition home or self-care (01) ==
LOC: ER 22:05
DX: L72.3 Sebaceous cyst (principal); Z85.3 Personal history of malignant neoplasm of breast; Z85.038 Personal history of other malignant neoplasm of large intestine
CPT/HCPCS: 99282